=== PATIENT | female | born 1995 | race Caucasian/White ===

== ENCOUNTER 2018-05-16 16:53 | Emergency (ER) | payer OTHER ==
--- NOTE | 2018-05-16 19:00 | ER Document Report ---
ED Medical Screen (RME) - General Chief Complaint: Vaginal Bleeding Stated Complaint: EAR/THROAT/BACK PAIN, FEVER, VAGINAL BLEEDING Time Seen by Provider: 05/16/18 18:48 Notes: This 23-year-old female patient comes emergency room for 3-day history of throat and back pain. Today she developed pain in the right lower abdomen going back toward the right low back. She also developed fever over 103, and at noon today started excessive vaginal bleeding. Her last menstrual period stopped on 05/06/2018. She is breast-feeding. She took 1 g of Tylenol at 4 PM, and 800 mg of Motrin at 3 PM. She has had some nausea and vomiting and does have a headache. Brief exam shows abdomen is obese, soft, tender in the right lower quadrant. There is no CVA percussion tenderness. She is very tender to palpate the lower lumbar back particularly the right lateral aspect. I have greeted and performed a rapid initial assessment of this patient. A comprehensive ED assessment and evaluation of the patient, analysis of test results and completion of the medical decision making process will be conducted by additional ED providers. TRAVEL OUTSIDE OF THE [place] IN LAST 30 DAYS: No - Related Data Allergies/Adverse Reactions: amoxicillin Allergy (Verified 05/16/18 18:39) Penicillins Allergy (Verified 05/16/18 18:39) Past Medical History - Social History Chew tobacco use (# tins/day): No Frequency of alcohol use: Occasional Drug Abuse: None Renal/ Medical History: Denies: Hx Peritoneal Dialysis Past Surgical History: Reports: Hx Oral Surgery Physical Exam - Vital signs Vitals: Temp Pulse Resp BP Pulse Ox 102.6 F H 118 H 16 130/62 H 100 05/16/18 17:03 05/16/18 17:03 05/16/18 17:03 05/16/18 17:03 05/16/18 17:03 Course - Vital Signs Vital signs: Temp Pulse Resp BP Pulse Ox 102.6 F H 118 H 16 130/62 H 100 05/16/18 17:03 05/16/18 17:03 05/16/18 17:03 05/16/18 17:03 05/16/18 17:03
[2018-05-16 19:33] LABS: ABSOLUTE LYMPHOCYTES (AUTO) 1.3 10^3/uL (0.5-4.7); ABSOLUTE MONOCYTES (AUTO) 0.8 10^3/uL (0.1-1.4); ABSOLUTE NEUT (AUTO) 4.4 10^3/uL (1.7-8.2); BASOPHILS % (AUTO) 0.3 % (0-2); HEMATOCRIT 38.5 % (36.0-47.0); HEMOGLOBIN 12.9 g/dL (12.0-15.5); LYMPHOCYTES % (AUTO) 20.4 % (13-45); MEAN CORPUSCULAR HEMOGLOBIN 26.6 pg (27.0-33.4); MEAN CORPUSCULAR HGB CONC 33.6 g/dL (32.0-36.0); MEAN CORPUSCULAR VOLUME 79 fl (80-97); MONOCYTES % (AUTO) 12.3 % (3-13); PLATELET COUNT 225 10^3/uL (150-450); RED BLOOD COUNT 4.86 10^6/uL (3.72-5.28); RED CELL DISTRIBUTION WIDTH 14.1 % (11.5-14.0); TOTAL CELLS COUNTED % (AUTO) 100 %; WHITE BLOOD COUNT 6.6 10^3/uL (4.0-10.5)
[2018-05-16 19:40] LABS: APPEARANCE,URINE CLEAR; BILIRUBIN,URINE NEGATIVE (NEGATIVE); COLOR,URINE STRAW; GLUCOSE, URINE NEGATIVE (NEGATIVE); KETONES,URINE NEGATIVE (NEGATIVE); LEUKOCYTE ESTERASE,URINE TRACE (NEGATIVE); NITRITE,URINE NEGATIVE (NEGATIVE); PROTEIN,URINE NEGATIVE (NEGATIVE); URINE SPECIFIC GRAVITY 1.004; UROBILINOGEN,URINE NEGATIVE mg/dL (<2.0)
[2018-05-16 19:52] LABS: ALANINE AMINOTRANSFERASE 30 U/L (9-52); ALBUMIN 4.4 g/dL (3.5-5.0); ALKALINE PHOSPHATASE 113 U/L (38-126); ANION GAP 13 (5-19); ASPARTATE AMINO TRANSFERASE 19 U/L (14-36); BILIRUBIN,DIRECT 0.3 mg/dL (0.0-0.4); BILIRUBIN,TOTAL 0.5 mg/dL (0.2-1.3); BLOOD UREA NITROGEN 9 mg/dL (7-20); CALCIUM 9.9 mg/dL (8.4-10.2); CARBON DIOXIDE 24 mmol/L (22-30); CHLORIDE 100 mmol/L (98-107); GLUCOSE 94 mg/dL (75-110); POTASSIUM 4.4 mmol/L (3.6-5.0); SODIUM 136.7 mmol/L (137-145); TOTAL PROTEIN 7.7 g/dL (6.3-8.2)
[2018-05-16] MEDS ORDERED: ACETAMINOPHEN 325 MG TABLET PO ONE (20:30)
[2018-05-16] MEDS ORDERED: NORMAL SALINE 1000 ML 1,000 ML IV ONE (20:30)
[2018-05-16] MEDS ORDERED: DEXAMETHASONE 4 MG TABLET PO ONE (20:47)
--- NOTE | 2018-05-16 20:48 | ER Document Report ---
ED General - General Chief Complaint: Vaginal Bleeding Stated Complaint: EAR/THROAT/BACK PAIN, FEVER, VAGINAL BLEEDING Time Seen by Provider: 05/16/18 18:48 Notes: Patient is a 23-year-old female without chronic medical problems presents compla ining of multiple symptoms. Her primary focus is fever, sinus congestion, nasal congestion, bilateral ear pain and sore throat. Patient states that she has had the above symptoms for the past 2 days with a fever did not start until today. She also states that since the fever started she has had diffuse myalgias, low back pain and feels generally unwell. She denies to me chest pain, shortness of breath, cough or abdominal pain. No nausea, vomiting or diarrhea. The pain to the affected areas as described as soreness, throbbing and constant. Started gradually and has gotten worse since onset. Nothing seems to improve or worsen her symptoms. Multiple sick contacts. Has not seen her general physician regarding today's concerns. TRAVEL OUTSIDE OF THE [place] IN LAST 30 DAYS: No - Related Data Allergies/Adverse Reactions: amoxicillin Allergy (Verified 05/16/18 18:39) Penicillins Allergy (Verified 05/16/18 18:39) Past Medical History - General Information source: Patient - Social History Smoking Status: Never Smoker Chew tobacco use (# tins/day): No Frequency of alcohol use: Occasional Drug Abuse: None Lives with: Spouse/Significant other Family History: Reviewed & Not Pertinent Patient has suicidal ideation: No Patient has homicidal ideation: No Renal/ Medical History: Denies: Hx Peritoneal Dialysis Past Surgical History: Reports: Hx Oral Surgery Review of Systems - Review of Systems Notes: Constitutional: Positive for fever. HENT: Positive for sore throat Eyes: Negative for visual changes. Cardiovascular: Negative for chest pain. Respiratory: Negative for shortness of breath. Gastrointestinal: Negative for abdominal pain, vomiting or diarrhea. Genitourinary: Negative for dysuria. Musculoskeletal: Positive for low back pain Skin: Negative for rash. Neurological: Negative for headaches, weakness or numbness. 10 point ROS negative except as marked above and in HPI. Physical Exam - Vital signs Vitals: Temp Pulse Resp BP Pulse Ox 102.6 F H 118 H 16 130/62 H 100 05/16/18 17:03 05/16/18 17:03 05/16/18 17:03 05/16/18 17:03 05/16/18 17:03 Interpretation: Tachycardic, Febrile Notes: PHYSICAL EXAMINATION: GENERAL: Well-appearing, well-nourished and in no acute distress. HEAD: Atraumatic, normocephalic. EYES: Pupils equal round and reactive to light, extraocular movements intact, sclera anicteric, conjunctiva are normal. ENT: nares patent, diffuse pharyngeal erythema, mild tonsillar hypertrophy without exudates. Moist mucous membranes. NECK: Normal range of motion, bilateral anterior cervical lymphadenopathy as well as submandibular lymphadenopathy bilaterally LUNGS: Breath sounds clear to auscultation bilaterally and equal. No wheezes r ales or rhonchi. HEART: Regular tachycardia without murmurs ABDOMEN: Soft, nontender, normoactive bowel sounds. No guarding, no rebound. No masses appreciated. EXTREMITIES: Normal range of motion, no pitting or edema. No cyanosis. NEUROLOGICAL: No focal neurological deficits. Moves all extremities spontaneously and on command. PSYCH: Normal mood, normal affect. SKIN: Warm, Dry, normal turgor, no rashes or lesions noted. Course - Re-evaluation Re-evalutation: 05/16/18 20:46 Presentation of several days of sore throat, ear pain, fever, congestion as well as complaints of low back pain and vaginal bleeding in an otherwise well- appearing patient. Contrary to triage assessment the patient denies any abdomi nal pain to me. Rapid strep is negative. History and exam are not consistent with a retropharyngeal abscess or peritonsillar abscess. Airway is patent. No difficulty handling oral secretions. Vitals show fever and tachycardia improved after treatment. Patient was treated with a dose of dexamethasone and advised on symptomatic care. Suspect likely viral pharyngitis. Abdominal exam is completely benign. Low back exam completely benign. No midline spinal tenderness, step-offs, swelling or deformities. Labs globally unremarkable. Patient denies abdominal pain to me, has no abdominal pain on exam to suggest a surgical abdominal pathology. At this time will discharge with return precautions and follow-up recommendations. Verbal discharge instructions given a the bedside and opportunity for questions given. Medication warnings reviewed. Patient is in agreement with this plan and has verbalized understanding of return precautions and the need for primary care follow-up in the next 24-72 hours. 05/16/18 20:48 - Vital Signs Vital signs: Temp Pulse Resp BP Pulse Ox 99.4 F 106 H 16 105/58 L 95 05/16/18 22:00 05/16/18 22:00 05/16/18 22:00 05/16/18 22:00 05/16/18 22:00 - Laboratory Result Diagrams: 05/16/18 19:13 05/16/18 19:13 Laboratory results interpreted by me: 05/16/18 05/16/18 05/16/18 19:13 19:13 19:13 MCV 79 L MCH 26.6 L RDW 14.1 H Sodium 136.7 L Urine Blood MODERATE H Ur Leukocyte Esterase TRACE H Discharge - Discharge Clinical Impression: Viral pharyngitis Fever Qualifiers: Fever type: unspecified Qualified Code(s): R50.9 - Fever, unspecified Acute ear pain Qualifiers: Laterality: bilateral Qualified Code(s): H92.03 - Otalgia, bilateral Condition: Good Disposition: HOME, SELF-CARE Additional Instructions: Your strep test is negative. Your symptoms are likely due to an viral infection and will resolve in the next 1-2 weeks. You have also been given a dose of steroids to help with your throat discomfort. Please continue to take ibuprofen 600 mg every 6 hours or Tylenol 1000 mg every 6 hours as needed for throat discomfort. You can also gargle with salt water. Continue to drink plenty of fluids. Follow-up with your primary care doctor in the next several days. Return if you become unable to swallow, have difficulty breathing, pass out, have persistent vomiting that prevents you from being able to tolerate fluids, or have any other symptoms that are concerning to you.
[2018-05-16 22:01] VITALS: BP 105/58
== END 2018-05-16 22:01 | disposition home or self-care (01) ==
LOC: ER 16:53
DX: J02.9 Acute pharyngitis, unspecified (principal); H92.03 Otalgia, bilateral; R50.9 Fever, unspecified; N93.8 Other specified abnormal uterine and vaginal bleeding; Z88.0 Allergy status to penicillin
CPT/HCPCS: 99283; 36415; 87040; 87070; 87880; 84703; 85025; 80053; 81001; J7030